=== PATIENT | female | born 1970 | race African-American/Black ===

== ENCOUNTER → 2021-09-01 | Outpatient (CLI) | payer OTHER ==
[2016-08-05 11:09] VITALS: BP 126/73
[~2021-09-01] MED LIST: ASCO500T3 PO; FERR325T14 PO; FLUT1DIS3 IH; IOHEXOL 350 MG/ML 100 ML VIAL. IV ONE; NORE1TAB23 PO
--- NOTE | 2021-09-01 17:28 | RAD ---
EXAMINATION: CT Pulmonary Angiogram with IV contrast INDICATION: Reason: HYPOXEMIA - OMNI 350 100 ML / Spl. Instructions: / History: COMPARISON: Hypoxemia TECHNIQUE: Using helical technique, CT data from the thoracic inlet through the upper abdomen was obt ained during rapid IV contrast infusion. The examination was timed to the pulmonary arterial system t o generate a CT angiographic study. 3D MIPS, sagittal and coronal reformats were generated. FINDINGS: Vascular: The study is diagnostic to the level of the subsegmental pulmonary arteries. Adequate opacification o f pulmonary arteries. Pulmonary arteries: No evidence of acute or chronic pulmonary embolism. The pulmonary arteries are no rmal in size. Thoracic aorta: Normal in size. Pulmonary veins: Normal drainage into the left atrium. Coronary arteries: Normal origins. No detectable calcified coronary atherosclerosis. Systemic veins: Within normal limits. Heart: The heart is normal in size. No pericardial effusion. Chest: Lungs/Pleura: The pulmonary parenchyma appears within normal limits. 5 mm subpleural nodularity in th e dependent portion of the left lower lobe (96/4). Scattered areas of subsegmental atelectasis within the lingula and dependent portion of bilateral lower lobes. No pleural effusion or focal pleural les ion. Central airways patent. Mediastinum: No pathologic mediastinal or hilar adenopathy The visualized thyroid and the esophagus a re unremarkable Axilla/Soft Tissue: Prominent bilateral axillary adenopathy with preserved fatty adal. No supraclavic ular adenopathy.. Regional soft tissues are within normal limits. Upper abdomen: The visualized upper abdomen appears unremarkable. Bones: No evidence of acute fractures or aggressive osseous lesions. IMPRESSION: Vascular: 1. No pulmonary embolism. Chest: 1. No confluent infiltrate. 2. Nonspecific 5 mm subpleural nodularity in the left lower lobe. Correlation with outside imaging if available to assess stability. If none is available then no routine follow-up is recommended if the patient is low risk, if the patient is high risk then optional CT at 12 months is advised per the 201 7 [place] guidelines. PRQS compliance statement - One or more of the following individualized dose reduction techniques wer e utilized for this study: 1. Automated exposure control 2. Adjustment of the mA and/or kV according to patient size 3. Use of iterative reconstruction technique Electronically signed by: Bo Lindsay DO (09/01/2021 5:25 PM) [id number]
== END ==
LOC: RAD 15:45
PROVIDERS: ATTEND Specialist
DX: R91.8 Other nonspecific abnormal finding of lung field (principal); J98.11 Atelectasis; R09.02 Hypoxemia
CPT/HCPCS: 71275; Q9967